=== PATIENT | female | born 1960 | race African-American/Black ===

== ENCOUNTER 2019-11-25 21:26 | Inpatient (IN) ==
[2019-11-25] MEDS ORDERED: PANTOPRAZOLE 40 MG VIAL IV ONE (22:23)
[2019-11-25] MEDS ORDERED: ONDANSETRON 4 MG/2 ML VIAL ONE (22:23)
[2019-11-25] MEDS ORDERED: SODIUM CHLORIDE 0.9% 1,000 ML IV STA (22:25)
[2019-11-25] MEDS ORDERED: ONDANSETRON 4 MG/2 ML VIAL IV STA (22:25)
[2019-11-25] MEDS ORDERED: PANTOPRAZOLE 40 MG VIAL IV STA (22:25)
[2019-11-25 23:09] LABS: INR 1.6; PT Patient Result 17.4 SECS (9.6-12.2)
[2019-11-25 23:22] LABS: Alanine Aminotransferase 32 U/L (13-56); Albumin 3.1 G/DL (3.4-5.0); Alkaline Phosphatase 93 U/L (45-117); Amylase 140 U/L (25-115); Aspartate Amino Transferase 123 U/L (0-37); Blood Urea Nitrogen 52 MG/DL (7-18); Calcium 8.6 MG/DL (8.5-10.1); Estimated Glom Filtration Rate 16 ML/MIN; Glucose 114 MG/DL (74-106); Osmolality,Calculated 284.1 MOS/KG (273-304); Total Protein 6.8 G/DL (6.4-8.3)
[2019-11-25] MEDS ORDERED: THIAMINE INJ 100 MG, FOLIC ACID INJ 1 MG, MAGNESIUM SULF INJ 2 GM, MULTIVITAMIN INJ 10 ... IV ONE (23:31)
[2019-11-25 23:44] LABS: Basophils % 0.2 % (0.0-0.8); Hematocrit 22.7 VOL% (35.7-47.0); Hemoglobin 7.5 GM/DL (12.0-16.0); Immature Granulocytes % 1.2 %; Immature Granulocytes Absolute 0.31 #; Lymphocytes # 2.2 10*3/uL (1.4-4.0); Lymphocytes % 8.6 % (21.3-54.2); Mean Corpuscular Volume 115.8 FL (87-102); Mean Platelet Volume 11.4 FL (9.6-12.0); Monocytes % 6.5 % (1.7-12.7); NRBC # 0.24 10*3/uL; Neutrophils % 83.5 % (38.7-73.9); Platelet Count 168 T/CUMM (130-400); Red Blood Count 1.96 MC/CUMM (3.8-5.5); White Blood Count 25.5 T/CUMM (4-12)
[2019-11-25] MEDS ORDERED: OCTREOTIDE 100 MCG/ML SYRINGE IV STA (23:45)
[2019-11-25] MEDS ORDERED: OCTREOTIDE 500 MCG in SODIUM CHLORIDE 0.9% 100 ML IV SCH (23:45)
[2019-11-25] MEDS ORDERED: SODIUM CHLORIDE 0.9% 1,000 ML IV PRN (23:47)
[2019-11-25] MEDS ORDERED: PIPERACILLIN/TAZOBACTAM 3,375 MG in SODIUM CHLORIDE 0.9% 100 ML IV STA (23:54)
[2019-11-26 00:03] LABS: Anisocytosis 1+; Band Neutrophils 1 % (0-10); Lymphocytes 5 % (20-55); Nucleated Red Blood Cells 1 (0-5); Platelet Estimate Normal; Segmented Neutrophils 90 % (50-85); Total Cells Counted 100
[2019-11-26 00:04] LABS: Macrocytosis 1+; Polychromasia Slight
[2019-11-26] MEDS ORDERED: ONDANSETRON 4 MG/2 ML VIAL IV PRN (00:26)
[2019-11-26] MEDS ORDERED: ALBUTEROL 2.5 MG/3 ML NEB RESP TX PRN (00:26)
[2019-11-26] MEDS: SODIUM CHLORIDE 0.9% 1,000 ML IV STA ×2 (00:30→00:34)
[2019-11-26] MEDS ORDERED: SODIUM CHLORIDE 0.9% 1,000 ML IV PRN ×2 (00:35→09:46)
[2019-11-26] MEDS ORDERED: SODIUM CHLOR 0.45% KCL 20 MEQ 20 MEQ/1,000 ML BAG IV SCH (01:30)
[2019-11-26] MEDS ORDERED: LORazepam 2 MG/1 ML VIAL IV PRN (01:58)
[2019-11-26] MEDS ORDERED: SODIUM CHLORIDE 0.9% 500 ML IV ONE ×2 (05:58→09:44)
[2019-11-26 06:48] LABS: Hematocrit 25.4 VOL% (35.7-47.0); Hemoglobin 8.3 GM/DL (12.0-16.0)
[2019-11-26 07:19] LABS: Albumin 2.5 G/DL (3.4-5.0); Bilirubin,Total 1.9 MG/DL (0.2-1.0); Calcium 7.1 MG/DL (8.5-10.1); Osmolality,Calculated 292.5 MOS/KG (273-304); Total Protein 5.1 G/DL (6.4-8.3)
[2019-11-26] MEDS: MULTIVITAMIN (CENTRUM) TABLET PO SCH (09:00)
[2019-11-26] MEDS: FOLIC ACID 1 MG TABLET PO SCH (09:00)
[2019-11-26] MEDS: PANTOPRAZOLE 40 MG VIAL IV SCH ×3 (09:00→20:27)
[2019-11-26] MEDS: THIAMINE 100 MG TABLET PO SCH (09:00)
[2019-11-26] MEDS: SODIUM CHLORIDE 0.9% 1,000 ML IV SCH ×2 (10:05→20:28)
[2019-11-26] MEDS ORDERED: NOREPINEPHRINE 8 MG in SODIUM CHLORIDE 0.9% 242 ML IV PRN (13:22)
[2019-11-26] MEDS: CIPROFLOXACIN 0.3% OPH SOLN 2.5 ML BOTTLE BOTH EYES SCH ×3 (15:00→22:14)
[2019-11-26] MEDS ORDERED: PHENYLEPHRINE 1 MG/10 ML SYRINGE IV ONE (15:04)
[2019-11-26] MEDS ORDERED: ETOMIDATE 40 MG/20 ML VIAL IV ONE (15:04)
[2019-11-26] MEDS ORDERED: propofoL 200 MG/20 ML VIAL IV ONE (15:04)
[2019-11-26] MEDS ORDERED: MIDAZOLAM 2 MG/2 ML VIAL ONE (15:04)
[2019-11-26] MEDS ORDERED: LIDOCAINE 2% 5 ML VIAL ONE (15:04)
[2019-11-26] MEDS: PIPERACILLIN/TAZOBACTAM 3,375 MG in SODIUM CHLORIDE 0.9% 100 ML IV SCH ×2 (15:08→23:38)
[2019-11-26 15:23] LABS: Apearance,Urine CLOUDY (Clear); Bacteria,Urine Few /HPF (Few); Bilirubin,Urine Negative (Negative); Blood, Urine Large mg/dL (Negative); Glucose,Urine (UA) Negative (Negative); Ketones,Urine Negative (Negative); Nitrite,Urine Negative (Negative); Protein,Urine 30 MG/DL; RBC,Urine 59 /HPF (0-4); Squamous Epithelial Cell,Urine Occasional /HPF (0-10); Urine Color Amber (Yellow); Urine Specific Gravity 1.014 (1.001-1.035); Urine Urobilinogen < 2.0 EU/DL (0.2-1.0); WBC,Urine 304 /HPF (0-6)
[2019-11-26 15:23] LABS: Hematocrit 28.5 VOL% (35.7-47.0); Hemoglobin 9.6 GM/DL (12.0-16.0)
[2019-11-26 15:52] LABS: Barbiturates Screen,Urine Negative (Negative); Benzodiazepines Screen,Urine Negative (Negative); Cannabinoid Screen,Urine Negative (Negative); Opiate Screen,Urine Negative (Negative); Phencyclidine Screen,Urine Negative (Negative)
[2019-11-26 19:06] LABS: Hematocrit 30.2 VOL% (35.7-47.0)
[2019-11-27 01:28] LABS: Calcium 7.1 MG/DL (8.5-10.1); Osmolality,Calculated 289.1 MOS/KG (273-304)
[2019-11-27] MEDS: CIPROFLOXACIN 0.3% OPH SOLN 2.5 ML BOTTLE BOTH EYES SCH ×5 (02:29→18:38)
[2019-11-27] MEDS: SODIUM CHLORIDE 0.9% 1,000 ML IV SCH ×4 (03:58→20:32)
[2019-11-27 05:25] LABS: Basophils # 0.1 10*3/uL (0.0-0.2); Basophils % 0.3 % (0.0-0.8); Eosinophils % 0.2 % (0.00-10.9); Hematocrit 28.7 VOL% (35.7-47.0); Hemoglobin 9.5 GM/DL (12.0-16.0); Immature Granulocytes % 1.3 %; Immature Granulocytes Absolute 0.24 #; Lymphocytes # 3.3 10*3/uL (1.4-4.0); Lymphocytes % 17.8 % (21.3-54.2); Mean Corpuscular HGB Conc 33.1 GM/DL (32-36); Mean Corpuscular Volume 102.1 FL (87-102); Mean Platelet Volume 11.1 FL (9.6-12.0); Monocytes % 7.7 % (1.7-12.7); NRBC # 0.08 10*3/uL; Neutrophils % 72.7 % (38.7-73.9); Platelet Count 71 T/CUMM (130-400); Red Blood Count 2.81 MC/CUMM (3.8-5.5); White Blood Count 18.4 T/CUMM (4-12)
[2019-11-27] MEDS: MULTIVITAMIN (CENTRUM) TABLET PO SCH (09:17)
[2019-11-27] MEDS: THIAMINE 100 MG TABLET PO SCH (09:17)
[2019-11-27] MEDS: PANTOPRAZOLE 40 MG VIAL IV SCH ×2 (09:17→20:33)
[2019-11-27] MEDS: FOLIC ACID 1 MG TABLET PO SCH (09:17)
[2019-11-27] MEDS: PIPERACILLIN/TAZOBACTAM 3,375 MG in SODIUM CHLORIDE 0.9% 100 ML IV SCH (12:30)
[2019-11-27] MEDS ORDERED: MAGNESIUM SULF RIDER 2 GM in PREMIX 1 EACH IV ONE (14:43)
[2019-11-28] MEDS: CIPROFLOXACIN 0.3% OPH SOLN 2.5 ML BOTTLE BOTH EYES SCH ×4 (00:21→10:00)
[2019-11-28] MEDS: PIPERACILLIN/TAZOBACTAM 3,375 MG in SODIUM CHLORIDE 0.9% 100 ML IV SCH (00:21)
[2019-11-28 05:14] LABS: Basophils % 0.3 % (0.0-0.8); Eosinophils # 0.1 10*3/uL (0.0-0.87); Eosinophils % 0.9 % (0.00-10.9); Hematocrit 25.9 VOL% (35.7-47.0); Hemoglobin 8.8 GM/DL (12.0-16.0); Immature Granulocytes Absolute 0.09 #; Lymphocytes # 2.5 10*3/uL (1.4-4.0); Lymphocytes % 27.1 % (21.3-54.2); Mean Corpuscular Volume 100.4 FL (87-102); Mean Platelet Volume 9.8 FL (9.6-12.0); Monocytes % 11.8 % (1.7-12.7); NRBC # 0.05 10*3/uL; Neutrophils % 58.9 % (38.7-73.9); Platelet Count 104 T/CUMM (130-400); Red Blood Count 2.58 MC/CUMM (3.8-5.5); Red Cell Distribution Width 19.5 % (9.3-17.3); White Blood Count 9.4 T/CUMM (4-12)
[2019-11-28 05:33] LABS: Calcium 7.7 MG/DL (8.5-10.1); Osmolality,Calculated 279.8 MOS/KG (273-304)
[2019-11-28] MEDS: MULTIVITAMIN (CENTRUM) TABLET PO SCH (08:44)
[2019-11-28] MEDS: FOLIC ACID 1 MG TABLET PO SCH (08:44)
[2019-11-28] MEDS: THIAMINE 100 MG TABLET PO SCH (08:44)
[2019-11-28] MEDS: PANTOPRAZOLE 40 MG VIAL IV SCH (08:44)
[2019-11-28] MEDS: SODIUM CHLORIDE 0.9% 1,000 ML IV SCH (10:01)
[2019-11-28 10:12] LABS: % Iron Saturation 11.4 % (18-50)
[2019-11-28 10:16] LABS: Folate 5.3 NG/ML (5.4-24.0)
[2019-11-28] MEDS ORDERED: IRON SUCROSE 300 MG in SODIUM CHLORIDE 0.9% 100 ML IV ONE (10:30)
[2019-11-28] MEDS ORDERED: POTASSIUM CHLORIDE 20 MEQ TABLET PO ONE (10:40)
[2019-11-28 12:13] VITALS: BP 138/89
[2019-11-28] MEDS ORDERED: FERROUS SULFATE 325 MG TABLET PO SCH (17:00)
== END 2019-11-28 15:00 | disposition home or self-care (01) | DRG 377 ==
LOC: N.ED 21:26 → SUATTDRO 11-26 00:26 → N.EDINP 11-26 00:26 → SUPCPDRO 11-26 00:26 → N.CC 11-26 01:06 → N.5E 11-27 17:15
PROVIDERS: ADMIT Internal Medicine; ATTEND Internal Medicine Cardiovascular Disease